=== PATIENT | female | born 1985 | race Caucasian/White ===

== ENCOUNTER 2017-04-23 19:03 | Emergency (ER) | payer OTHER ==
--- NOTE | 2017-04-23 19:16 | PDOC ---
History of Present Illness - General History Source: Patient Exam Limitations: No Limitations - History of Present Illness Initial Comments: 04/23/17 19:52 The patient is a 31 year old female, with no significant past medical history, who presents to the emergency department s/p mechanical fall earlier this afternoon. The patient reports she was working at [employer] and went to the bathroom to aid a resident, but she did not realize the floor was wet. She states she slipped and landed on her back. Patient reports she was able to roll over and get up on her own. She reports associated lower back pain , worse on the right than the left. Patient reports her pain is exacerbated when walking or bending over. She describes her pain as a burning sensation similar to when you are seated for a long time.. She denies any head trauma, LOC , lower extremity swelling, numbness, paresthesias, changes in vision, or any other pain. She denies any chest pain, shortness of breath, diaphoresis, or palpitations. She denies any fever, chills, headache, or dizziness. Patient denies any previous history of back trauma. 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 Non smoker. No ETOH or drug use. <Vera Harrell - Last Filed: 04/23/17 21:40> <Betty Oconnor - Last Filed: 04/24/17 05:26> - General Chief Complaint: Injury Stated Complaint: LOWER BACK PAIN S/P FALL AT WORK Time Seen by Provider: 04/23/17 19:13 Past History <Vera Harrell - Last Filed: 04/23/17 21:40> <Betty Oconnor - Last Filed: 04/24/17 05:26> - Past Medical History Allergies/Adverse Reactions: Allergies Allergy/AdvReac Type Severity Reaction Status Date / Time No Known Allergies Allergy Unverified 04/23/17 19:06 Home Medications: Ambulatory Orders Diclofenac Sodium 75 mg PO BID PRN #20 tablet. 04/23/17 Review of Systems - Review of Systems Able to Perform ROS?: Yes Comments:: 04/23/17 19:52 CONSTITUTIONAL: Absent: fever, no chills, no fatigue EYES: Absent: visual changes ENT: Absent: ear pain, no sore throat CARDIOVASCULAR: Absent: chest pain, no palpitations RESPIRATORY: Absent: cough, no SOB GI: Absent: abdominal pain, no nausea, no vomiting, no constipation, no diarrhea GENITOURINARY: Absent: dysuria, no frequency, no hematuria MUSCULOSKELETAL: Present: +back pain Absent: no arthralgia, no myalgia SKIN: Absent: rash NEURO: Absent: headache <Harrell,Giomilsy - Last Filed: 04/23/17 21:40> *Physical Exam - Vital Signs Last Vital Signs Temp Pulse Resp BP Pulse Ox 98.1 F 78 16 124/82 1 L 04/23/17 19:05 04/23/17 19:05 04/23/17 19:05 04/23/17 19:05 04/23/17 19:05 - Physical Exam Comments: 04/23/17 20:11 GENERAL: The patient is awake, alert, and fully oriented, in no acute distress. HEAD: Normal with no signs of trauma. EYES: Pupils equal, round and reactive to light, extraocular movements intact, sclera anicteric, conjunctiva clear with no pallor. ENT: Ears normal, nares patent, oropharynx clear without exudates. Moist mucous membranes. NECK: Normal range of motion, supple without lymphadenopathy, JVD, or masses. LUNGS: Breath sounds equal, clear to auscultation bilaterally. No wheeze/ crackles. HEART: Regular rate and rhythm, normal S1 and S2 without murmur or rub. ABDOMEN: Soft/nontender/nondistended. BS wnl. No guarding or rebound. No palpable masses. No hepatosplenomegaly. BACK: Mild tenderness to palpation of the midline sacrum. No significant tenderness of either sacroiliac joint. No other significant spinal tenderness. No CVA tenderness. EXTREMITIES: No anterior hip tenderness bilaterally. Pain with straight leg raise at 45 degrees bilaterally. Otherwise normal range of motion, no edema. No clubbing or cyanosis. No cords, erythema, or tenderness. NEUROLOGICAL: Cranial nerves II through XII grossly intact. Normal speech, normal gait. PSYCH: Normal mood, normal affect. SKIN: Warm, Dry, normal turgor, no rashes or lesions noted. <Harrell,Giomilsy - Last Filed: 04/23/17 21:40> ED Treatment Course - RADIOLOGY Radiograph Interpretation: 04/23/17 21:41 EXAM: X-Ray lumbar spine INTERPRETED BY: Dr. Stevenson REVIEWED BY: Dr. Oconnor IMPRESSION: No definite radiographic abnormality seen. <Vera Harrell - Last Filed: 04/23/17 21:40> Progress Note - Progress Note Progress Note: Documentation has been prepared under my direction and personally reviewed by me in its entirety. I attest that this documented accurately reflects all work, treatment, procedures and medical decision making performed by me. <Betty Oconnor - Last Filed: 04/24/17 05:26> Medical Decision Making - Medical Decision Making As noted above, this 31-year-old woman, otherwise healthy, presents with lower back pain after falling at work earlier today. Exam as noted Lumbosacral x-ray show no evidence of fracture or other acute abnormality. Patient prefers not to take nonsteroidal anti-inflammatories here. She will take [id number] ibuprofen/naproxen at home. Also, prescription for diclofenac 75 mg twice a day as needed for pain will be sent to her pharmacy. Because the patient's job involves significant amount of physical work (lifting/ transfers of patients, etc.),she should not return to work until she is evaluated by an orthopedist. Work documentation with these details has been completed and given to the patient. Patient [facility]. Will be given referral information for [facility] (Dr. Mann's) office in [place], [place]. She should call the office tomorrow and arrange follow-up within the next few days <Betty Oconnor - Last Filed: 04/24/17 05:26> *DC/Admit/Observation/Transfer - Attestations Scribe Attestion: 04/23/17 19:53 Documentation prepared by Vera Harrell, acting as medical chief technician for Betty Oconnor MD. <Vera Harrell - Last Filed: 04/23/17 21:40> <Betty Oconnor - Last Filed: 04/24/17 05:26> Diagnosis at time of Disposition: Lumbosacral strain Qualifiers: Encounter type: initial encounter Qualified Code(s): S39.012A - Strain of muscle, fascia and tendon of lower back, initial encounter - Discharge Dispostion Disposition: HOME Condition at time of disposition: Stable - Prescriptions Prescriptions: Diclofenac Sodium 75 mg PO BID PRN #20 tablet.dr CRAWFORD Reason: Moderate Pain - Referrals Referrals: Adam Boone MD [Staff Physician] - Call tomorrow - Patient Instructions Printed Discharge Instructions: Low Back Pain Additional Instructions: Avoid strenuous activity, especially pushing/pulling/lifting until seen by orthopedist Ice/cold compresses to base of spine for the next 24 hours, then local warmth Advil/Tylenol as needed for [id number] pain Can also use diclofenac 75 mg twice a day for moderate lower back pain (take with food No work until seen by orthopedist Call orthopedic office tomorrow a.m. to make an appointment within the next 5 days - Post Discharge Activity Work/School Note: Back to Work
[2017-04-23 19:20] VITALS: BP 124/82; PULSE 78; TEMP 98.1; BMI 16.2
== END 2017-04-23 22:16 | disposition home or self-care (01) ==
LOC: FER 19:03
DX: S39.012A Strain of muscle, fascia and tendon of lower back, initial encounter (principal); W18.39XA Other fall on same level, initial encounter; Y93.89 Activity, other specified; Y92.121 Bathroom in nursing home as the place of occurrence of the external cause; Y99.0 Civilian activity done for income or pay
CPT/HCPCS: 72100-TC; 84703; 99282-25